=== PATIENT | female | born 1960 | race Caucasian/White ===

== ENCOUNTER → 2023-01-19 11:14 | Outpatient (REF) | payer OTHER, SELFPAY | LOC: DHCBS MAIN 11:14 | PROVIDERS: ATTENDING PHYSICIAN Internal Medicine Cardiovascular Disease; FAMILY PHYSICIAN Internal Medicine | DX: M34.1 CR(E)ST syndrome (principal) | CPT/HCPCS: 93306 ==

== ENCOUNTER 2023-04-29 12:56 | Outpatient (RCR) | payer OTHER, SELFPAY | END 2023-04-29 23:59 | disposition home or self-care (01) | LOC: RPT 12:56 | PROVIDERS: ATTENDING PHYSICIAN Obstetrics & Gynecology; PRIMARYCARE PHYSICIAN Internal Medicine | DX: N39.41 Urge incontinence (principal); R39.15 Urgency of urination; M62.89 Other specified disorders of muscle; N39.3 Stress incontinence (female) (male); Z73.6 Limitation of activities due to disability | CPT/HCPCS: 97014; 97110; 97112; 97140; 97530 ==

== ENCOUNTER → 2023-05-26 06:24 | Day surgery (SDC) | payer OTHER, SELFPAY | LOC: GI 06:24 | PROVIDERS: ATTENDING PHYSICIAN Internal Medicine Gastroenterology; FAMILY PHYSICIAN Family Medicine | DX: Z12.11 Encounter for screening for malignant neoplasm of colon (principal); K64.8 Other hemorrhoids; K63.5 Polyp of colon; Z80.0 Family history of malignant neoplasm of digestive organs; Z86.010 Personal history of colon polyps; K52.89 Other specified noninfective gastroenteritis and colitis | CPT/HCPCS: 45380; 88305 ==

== ENCOUNTER 2023-05-27 12:22 | Outpatient (RCR) | payer OTHER, SELFPAY | END 2023-05-27 23:59 | disposition home or self-care (01) | LOC: RPT 12:22 | PROVIDERS: ATTENDING PHYSICIAN Obstetrics & Gynecology; PRIMARYCARE PHYSICIAN Internal Medicine | DX: N39.41 Urge incontinence (principal); R39.15 Urgency of urination; M62.89 Other specified disorders of muscle; N39.3 Stress incontinence (female) (male); Z73.6 Limitation of activities due to disability | CPT/HCPCS: 97140; 97530 ==

== ENCOUNTER 2023-06-26 13:01 | Outpatient (RCR) | payer OTHER, SELFPAY | END 2023-06-26 23:59 | disposition home or self-care (01) | LOC: RPT 13:01 | PROVIDERS: ATTENDING PHYSICIAN Obstetrics & Gynecology; PRIMARYCARE PHYSICIAN Internal Medicine | DX: N39.46 Mixed incontinence (principal); M62.89 Other specified disorders of muscle; Z73.6 Limitation of activities due to disability | CPT/HCPCS: 97140; 97530 ==

== ENCOUNTER 2023-07-08 12:06 | Outpatient (RCR) | payer BC, SELFPAY | END 2023-07-08 23:59 | disposition home or self-care (01) | LOC: RPT 12:06 | PROVIDERS: ATTENDING PHYSICIAN Obstetrics & Gynecology; PRIMARYCARE PHYSICIAN Internal Medicine | DX: N39.46 Mixed incontinence (principal); M62.89 Other specified disorders of muscle; Z73.6 Limitation of activities due to disability | CPT/HCPCS: 97110; 97530 ==

== ENCOUNTER → 2023-07-30 13:52 | Outpatient (REF) | payer OTHER, SELFPAY | LOC: RAD 13:52 | PROVIDERS: ATTENDING PHYSICIAN Physician Assistant; FAMILY PHYSICIAN Family Medicine | DX: M25.541 Pain in joints of right hand (principal); R22.31 Localized swelling, mass and lump, right upper limb | CPT/HCPCS: 73130 ==

== ENCOUNTER 2023-08-14 15:21 | Outpatient (RCR) | payer OTHER, SELFPAY | END 2023-08-14 23:59 | disposition home or self-care (01) | LOC: RPT 15:21 | PROVIDERS: ATTENDING PHYSICIAN Obstetrics & Gynecology; PRIMARYCARE PHYSICIAN Internal Medicine | DX: N39.46 Mixed incontinence (principal); M62.89 Other specified disorders of muscle; Z73.6 Limitation of activities due to disability | CPT/HCPCS: 97530 ==

== ENCOUNTER 2023-10-09 14:17 | Outpatient (RCR) | payer OTHER, SELFPAY | END 2023-10-09 23:59 | disposition home or self-care (01) | LOC: RPT 14:17 | PROVIDERS: ATTENDING PHYSICIAN Obstetrics & Gynecology; PRIMARYCARE PHYSICIAN Internal Medicine | DX: N39.41 Urge incontinence (principal); N39.46 Mixed incontinence (principal); R39.15 Urgency of urination; Z73.6 Limitation of activities due to disability; M62.89 Other specified disorders of muscle; N39.3 Stress incontinence (female) (male) | CPT/HCPCS: 97530 ==

== ENCOUNTER → 2023-10-20 11:57 | Outpatient (REF) | payer OTHER, SELFPAY ==
[2023-10-20 12:32] LABS: ALT (SGPT) 42 U/L (0-35); AST (SGOT) 35 U/L (14-36); Albumin 4.7 g/dl (3.5-5.0); Alkaline Phosphatase 75 U/L (38-126); Blood Urea Nitrogen 14 mg/dl (7-17); Calcium 9.8 mg/dl (8.4-10.2); Carbon Dioxide 26 mmol/L (22-30); Chloride 106 mmol/L (98-107); Glucose 106 mg/dl (70-99); Potassium 4.4 mmol/L (3.5-5.1); Sodium 140 mmol/L (135-145); Total Bilirubin 2.7 mg/dl (0.2-1.3); Total Protein 7.7 g/dl (6.3-8.2); eGFR > 60.00
== END ==
LOC: REG 11:57
PROVIDERS: ATTENDING PHYSICIAN Nurse Practitioner Family
DX: R10.31 Right lower quadrant pain (principal)
CPT/HCPCS: 36415; 80053

== ENCOUNTER → 2023-10-20 14:30 | Outpatient (REF) | payer OTHER, SELFPAY | LOC: HWRAD 14:30 | PROVIDERS: ATTENDING PHYSICIAN Nurse Practitioner Family | DX: R10.31 Right lower quadrant pain (principal) | CPT/HCPCS: 74177; Q9967 ==

== ENCOUNTER → 2024-02-29 08:42 | Outpatient (REF) | payer OTHER, SELFPAY | LOC: WDC 08:42 | PROVIDERS: ATTENDING PHYSICIAN Obstetrics & Gynecology Gynecology; FAMILY PHYSICIAN Internal Medicine | DX: Z12.31 Encounter for screening mammogram for malignant neoplasm of breast (principal) | CPT/HCPCS: 77063; 77067 ==

== ENCOUNTER → 2024-03-08 09:00 | Outpatient (REF) | payer OTHER, SELFPAY | LOC: HWRCS 09:00 | PROVIDERS: ATTENDING PHYSICIAN Internal Medicine Cardiovascular Disease; FAMILY PHYSICIAN Internal Medicine | DX: R06.09 Other forms of dyspnea (principal) | CPT/HCPCS: 93306 ==

== ENCOUNTER → 2024-04-04 13:19 | Outpatient (REF) | payer OTHER, SELFPAY | LOC: RAD 13:19 | PROVIDERS: ATTENDING PHYSICIAN Internal Medicine Rheumatology; FAMILY PHYSICIAN Family Medicine | DX: Z78.0 Asymptomatic menopausal state (principal) | CPT/HCPCS: 77080 ==

== ENCOUNTER 2024-05-25 10:28 | Outpatient (RCR) | payer OTHER, SELFPAY | END 2024-05-25 23:59 | disposition home or self-care (01) | LOC: ROT 10:28 | PROVIDERS: ATTENDING PHYSICIAN Internal Medicine Rheumatology; FAMILY PHYSICIAN Family Medicine | DX: M79.641 Pain in right hand (principal); Z73.6 Limitation of activities due to disability; M65.331 Trigger finger, right middle finger | CPT/HCPCS: 97018; 97110; 97140; 97166; 97535; 97760 ==

== ENCOUNTER 2024-06-08 09:57 | Outpatient (RCR) | payer OTHER, SELFPAY | END 2024-06-08 23:59 | disposition home or self-care (01) | LOC: ROT 09:57 | PROVIDERS: ATTENDING PHYSICIAN Internal Medicine Rheumatology; FAMILY PHYSICIAN Family Medicine | DX: M79.641 Pain in right hand (principal); Z73.6 Limitation of activities due to disability; M65.331 Trigger finger, right middle finger; M34.9 Systemic sclerosis, unspecified; I73.00 Raynaud's syndrome without gangrene | CPT/HCPCS: 97018; 97110; 97140 ==

== ENCOUNTER 2025-01-25 07:12 | Outpatient (RCR) | payer OTHER, SELFPAY | END 2025-01-25 23:59 | disposition home or self-care (01) | LOC: ROT 07:12 | PROVIDERS: ATTENDING PHYSICIAN Orthopaedic Surgery Hand Surgery; FAMILY PHYSICIAN Family Medicine | DX: Z47.89 Encounter for other orthopedic aftercare (principal); M65.331 Trigger finger, right middle finger; Z73.6 Limitation of activities due to disability; M79.641 Pain in right hand | CPT/HCPCS: 97760 ==

== ENCOUNTER → 2025-03-02 10:40 | Outpatient (REF) | payer OTHER, SELFPAY | LOC: WDC 10:40 | PROVIDERS: ATTENDING PHYSICIAN Obstetrics & Gynecology Gynecology | DX: Z12.31 Encounter for screening mammogram for malignant neoplasm of breast (principal) | CPT/HCPCS: 77063; 77067 ==

== ENCOUNTER 2025-03-10 06:11 | Day surgery (SDC) | payer OTHER, SELFPAY ==
[2025-03-10 08:10] VITALS: BP 140/84; BMI 31.2
[2025-03-10 08:14] VITALS: BMI 31.2
== END 2025-03-10 09:25 | disposition home or self-care (01) ==
LOC: SDS 06:11
PROVIDERS: ATTENDING PHYSICIAN Internal Medicine Gastroenterology
DX: K44.9 Diaphragmatic hernia without obstruction or gangrene (principal); K31.7 Polyp of stomach and duodenum; K31.89 Other diseases of stomach and duodenum; R12 Heartburn
CPT/HCPCS: 43239; 88305; 88342